=== PATIENT | female | born 1975 | race Caucasian/White ===

== ENCOUNTER 2020-12-12 09:03 | Emergency (ER) | payer OTHER ==
[~2020-12-12] VITALS: Ht 172.7 cm; Wt 60.2 kg
[2020-12-12 09:03] VITALS: BP 122/81
--- NOTE | 2020-12-12 09:29 | PHYS DOC ---
General Adult EDM: Chief Complaint: HEADACHE HPI: HPI: 45-year-old female presents with migraine headache. The patient states the migraine started 2 days ago. She went to her primary care physician but the office is closed today. She normally is well controlled with Topamax and Imitrex. She took these as she normally would but they have not helped. The patient has not had to come to the ER for a couple of years for migraine h eadache. She has photophobia. The pain is a pressure sensation behind her eyes. She denies fever chills. Denies trauma or falls. Review of Systems: Review of Systems: Constitutional: Denies fever or chills Eyes: Denies change in visual acuity HENT: Denies nasal congestion or sore throat Respiratory: Denies cough or shortness of breath Cardiovascular: Denies chest pain or edema GI: Denies abdominal pain, nausea, vomiting, bloody stools or diarrhea : Denies dysuria Musculoskeletal: Denies back pain or joint pain Integument: Denies rash Neurologic: Headache. Denies focal weakness or sensory changes Endocrine: Denies polyuria or polydipsia Lymphatic: Denies swollen glands Psychiatric: Denies depression or anxiety Current Medications: Current Meds: Current Medications Medications (Trade) Dose Ordered Sig/Sohali Start Time Stop Time Status Last Admin Dose Admin Diphenhydramine HCl (Benadryl) 25 mg 1X ONCE 12/12/20 09:30 12/12/20 09:31 UNV Ketorolac Tromethamine (Toradol 30mg Vial) 30 mg 1X ONCE 12/12/20 09:30 12/12/20 09:31 UNV Metoclopramide HCl (Reglan Vial) 10 mg 1X ONCE 12/12/20 09:30 12/12/20 09:31 UNV Sodium Chloride 1,000 ml @ 1,000 mls/hr 1X ONCE 12/12/20 09:30 12/12/20 10:29 UNV Allergies: Allergies: Allergies Coded Allergies Type Severity Reaction Last Updated Verified latex Allergy Unknown 12/12/20 Yes vancomycin Allergy Unknown 12/12/20 Yes Physical Exam: PE: Constitutional: Well developed, well nourished, no acute distress, non-toxic appearance. [] HENT: Normocephalic, atraumatic, bilateral external ears normal, oropharynx moist, no oral exudates, nose normal. [] Eyes: PERRLA, EOMI, conjunctiva normal, no discharge. Photophobia. [] Neck: Normal range of motion, no tenderness, supple, no stridor. [] Cardiovascular: Heart rate regular rhythm, no murmur [] Lungs & Thorax: Bilateral breath sounds clear to auscultation [] Abdomen: Bowel sounds normal, soft, no tenderness, no masses, no pulsatile masses. [] Skin: Warm, dry, no erythema, no rash. [] Back: No tenderness, no CVA tenderness. [] Extremities: No tenderness, no cyanosis, no clubbing, ROM intact, no edema. [] Neurologic: Alert and oriented X 3, normal motor function, normal sensory function, no focal deficits noted. [] Psychologic: Affect normal, judgement normal, mood normal. [] EKG: EKG: [] Radiology/Procedures: Radiology/Procedures: [] Heart Score: C/O Chest Pain: N/A Risk Factors: Risk Factors: DM, Current or recent (<one month) smoker, HTN, HLP, family history of CAD, obesity. Risk Scores: Score 0 - 3: 2.5% MACE over next 6 weeks - Discharge Home Score 4 - 6: 20.3% MACE over next 6 weeks - Admit for Clinical Observation Score 7 - 10: 72.7% MACE over next 6 weeks - Early Invasive Strategies Course & Med Decision Making: Course & Med Decision Making Pertinent Labs and Imaging studies reviewed. (See chart for details) For the patient's headache I gave her 1 L normal saline, 30 mg of Toradol, 25 mg of Benadryl, and 10 mg of Reglan. She is feeling much better at this time. Her labs are unremarkable. She is stable for discharge. [] Dragon Disclaimer: Dragon Disclaimer: This electronic medical record was generated, in whole or in part, using a voice recognition dictation system. Departure Departure: Impression: Primary Impression: Migraine headache Disposition: HOME / SELF CARE / HOMELESS Condition: IMPROVED Referrals: HARRIS MYERS (PCP) Patient Instructions: Migraine Headache, [id number] KEITH DIALLO DO Dec 12, 2020 09:29
[2020-12-12] MEDS ORDERED: METOCLOPRAMIDE HCL 10 MG/2 ML VIAL. IVP ONE (09:30)
[2020-12-12] MEDS ORDERED: IV NORMAL SALINE 1,000ML 1,000 ML IV ONE (09:30)
[2020-12-12] MEDS ORDERED: diphenhydrAMINE 50 MG/ML VIAL IVP ONE (09:30)
[2020-12-12] MEDS ORDERED: KETOROLAC 30 MG/ML VIAL. IVP ONE (09:30)
[2020-12-12 10:22] LABS: CALCIUM 8.6 mg/dL (8.5-10.1); CREATININE 1.1 mg/dL (0.6-1.0)
[2020-12-12 10:28] LABS: ALBUMIN 3.8 g/dL (3.4-5.0); ALBUMIN/GLOBULIN RATIO 1.4 (1.0-1.7); TOTAL BILIRUBIN 0.8 mg/dL (0.2-1.0); TOTAL PROTEIN 6.5 g/dL (6.4-8.2)
[2020-12-12 10:29] LABS: BASO % 1 % (0-3); EOS % 1 % (0-3); HEMATOCRIT 38.4 % (36.0-47.0); HEMOGLOBIN 12.9 g/dL (12.0-15.5); LYMPH # 0.9 x10^3/uL (1.0-4.8); LYMPH % 16 % (24-48); MEAN CORPUSCULAR HEMOGLOBIN 33 pg (25-35); MEAN CORPUSCULAR HGB CONC 34 g/dL (31-37); MEAN CORPUSCULAR VOLUME 99 fL (79-100); MONO # 0.7 x10^3/uL (0.0-1.1); MONO % 12 % (0-9); NEUT # 4.1 x10^3uL (1.8-7.7); NEUT % 71 % (31-73); PLATELET COUNT 183 x10^3/uL (140-400); RED CELL DISTRIBUTION WIDTH 12.3 % (11.5-14.5); WHITE BLOOD COUNT 5.7 x10^3/uL (4.0-11.0)
== END 2020-12-12 11:48 | disposition home or self-care (01) ==
LOC: ER 09:03
DX: G43.909 Migraine, unspecified, not intractable, without status migrainosus (principal); Z88.1 Allergy status to other antibiotic agents; Z91.040 Latex allergy status
CPT/HCPCS: 36415; 80053; 85025; 96361; 96374; 96375; 99284; J1885; J2765; J7030

== ENCOUNTER 2021-08-06 09:39 | Emergency (ER) | payer OTHER ==
[~2021-08-06] VITALS: Ht 172.7 cm; Wt 60.2 kg
[2021-08-06 09:39] VITALS: BP 95/62
--- NOTE | 2021-08-06 10:14 | PHYS DOC ---
Past History Past Surgical History: Hysterectomy Alcohol Use: None General Adult EDM: Chief Complaint: DIZZY/LIGHT HEADED HPI: HPI: Patient is a 45-year-old female coming in via EMS for lightheadedness. Patient states that she has been nauseous and had very little p.o. intake for the past 2 days. She says that today she had a migraine and took her topiramate, describes migraine as her typical migraines. Patient states that she normally gets a little bit of vertigo after taking her medication but does not have lightheadedness like this. Patient was unable to drive herself secondary to lightheadedness. On EMS arrival her blood sugar was 60 and she was given oral glucose. She denies any vomiting, abdominal pain or diarrhea. Denies chest pain, shortness of breath or cough. Review of Systems: Review of Systems: All other systems within normal limits except for as noted in the HPI Allergies: Allergies: Allergies Coded Allergies Type Severity Reaction Last Updated Verified latex Allergy Unknown 12/12/20 Yes vancomycin Allergy Unknown 12/12/20 Yes Physical Exam: PE: Constitutional: Well developed, well nourished, no acute distress, non-toxic appearance. [] HENT: Normocephalic, atraumatic, bilateral external ears normal, nose normal. [] Eyes: PERRLA, conjunctiva normal, no discharge. [] Neck: No rigidity, supple, no stridor. [] Cardiovascular: Regular rate and rhythm, brisk cap refill [] Lungs & Thorax: Non labored symmetric respirations, no tachypnea or respiratory distress [] Abdomen: Soft, nondistended. Skin: Warm, dry, no erythema, no rash. [] Back: Unremarkable Extremities: No deformities, range of motion grossly intact, no lower extremity edema [] Neurologic: Alert and oriented X 3, no focal deficits noted. [] Psychologic: Affect normal, judgement normal, mood normal. [] Current Patient Data: Vital Signs: Vital Signs Date Time Temp Pulse Resp B/P (MAP) Pulse Ox O2 Delivery O2 Flow Rate FiO2 08/06/21 09:39 55 16 95/62 (73) 99 Room Air EKG: EKG: [] Radiology/Procedures: Radiology/Procedures: [] Heart Score: C/O Chest Pain: No Risk Factors: Risk Factors: DM, Current or recent (<one month) smoker, HTN, HLP, family history of CAD, obesity. Risk Scores: Score 0 - 3: 2.5% MACE over next 6 weeks - Discharge Home Score 4 - 6: 20.3% MACE over next 6 weeks - Admit for Clinical Observation Score 7 - 10: 72.7% MACE over next 6 weeks - Early Invasive Strategies Course & Med Decision Making: Course & Med Decision Making Pertinent Labs and Imaging studies reviewed. (See chart for details) [] Dragon Disclaimer: Dragon Disclaimer: This electronic medical record was generated, in whole or in part, using a voice recognition dictation system. Departure Departure: Impression: Primary Impression: Light-headed feeling Additional Impressions: Dehydration Nausea Disposition: HOME / SELF CARE / HOMELESS Condition: IMPROVED Referrals: HARRIS MYERS (PCP) Patient Instructions: Nausea, Adult Scripts Ondansetron (ONDANSETRON ODT) 4 Mg Tab.rapdis 1 TAB PO PRN Q6-8HRS PRN for NAUSEA, #16 TAB Prov: GUILLE LANTIGUA MD 08/06/21 GUILLE LANTIGUA MD Aug 06, 2021 10:14
[2021-08-06] MEDS ORDERED: ONDANSETRON PF 4 MG/2 ML VIAL. IVP ONE (10:15)
[2021-08-06] MEDS ORDERED: IV NORMAL SALINE 1,000ML 1,000 ML IV ONE ×2 (10:15→11:45)
[2021-08-06 11:06] LABS: BASO % 1 % (0-3); EOS % 0 % (0-3); HEMATOCRIT 36.4 % (36.0-47.0); HEMOGLOBIN 12.4 g/dL (12.0-15.5); LYMPH # 0.6 x10^3/uL (1.0-4.8); LYMPH % 12 % (24-48); MEAN CORPUSCULAR HEMOGLOBIN 33 pg (25-35); MEAN CORPUSCULAR HGB CONC 34 g/dL (31-37); MEAN CORPUSCULAR VOLUME 97 fL (79-100); MONO # 0.6 x10^3/uL (0.0-1.1); MONO % 12 % (0-9); NEUT # 3.9 x10^3uL (1.8-7.7); NEUT % 75 % (31-73); PLATELET COUNT 132 x10^3/uL (140-400); RED BLOOD COUNT 3.77 x10^6/uL (3.50-5.40); RED CELL DISTRIBUTION WIDTH 12.4 % (11.5-14.5); WHITE BLOOD COUNT 5.2 x10^3/uL (4.0-11.0)
[2021-08-06 11:13] LABS: CALCIUM 8.2 mg/dL (8.5-10.1); CREATININE 0.7 mg/dL (0.6-1.0); GFR 90.9; POTASSIUM 4.1 mmol/L (3.5-5.1)
[2021-08-06 11:19] LABS: ALBUMIN 3.4 g/dL (3.4-5.0); ALBUMIN/GLOBULIN RATIO 1.1 (1.0-1.7); TOTAL BILIRUBIN 0.6 mg/dL (0.2-1.0); TOTAL PROTEIN 6.5 g/dL (6.4-8.2)
[2021-08-06 13:08] LABS: CLARITY,URINE CLEAR; COLOR,URINE YELLOW; GLUCOSE,URINE NEG (NEG); UROBILINOGEN,URINE 0.2 mg/dL (0.2 mg/dL)
[2021-08-06 13:09] LABS: BACTERIA,URINE FEW /HPF (0-FEW); NITRITE,URINE NEG (NEG); SQUAMOUS EPITHELIAL CELL,UR MANY /LPF
[2021-08-06 13:36] LABS: AMPHETAMINE/METHAMPHETAMINE NEG (NEG); BARBITURATES NEG (NEG); BENZODIAZEPINES NEG (NEG); CANNABINOIDS NEG (NEG); COCAINE NEG (NEG); METHADONE NEG (NEG); OPIATES NEG (NEG); PHENCYCLIDINE NEG (NEG)
[2021-08-06] MEDS ORDERED: ONDA4TAB12 PO (14:42)
== END 2021-08-06 14:50 | disposition home or self-care (01) ==
LOC: ER 09:39
DX: E86.0 Dehydration (principal); R42 Dizziness and giddiness; R11.0 Nausea; G43.909 Migraine, unspecified, not intractable, without status migrainosus; Z91.040 Latex allergy status; Z88.1 Allergy status to other antibiotic agents
CPT/HCPCS: 36415; 80053; 80307; 81001; 81025; 83690; 84484; 85025; 87086; 96361; 96374; 99283; J2405; J7030